=== PATIENT | female | born 1930 | race Two or more races ===

== ENCOUNTER 2019-01-18 14:28 | Emergency (ER) | payer MEDICARE, OTHER ==
[2019-01-18] MEDS: ACETAMINOPHEN 325 MG TAB PO (15:14)
[2019-01-18] MEDS: LIDOCAINE 1% (MDV) 20 ML INJ SC (15:38)
[2019-01-18] MEDS: DIPHTH/TET/ACEL PERTUSS (ADULT) 0.5 ML VIAL IM* (15:40)
[2019-01-18] MEDS: KETOROLAC 15 MG INJ IV (16:33)
[2019-01-18] MEDS: BACITRACIN 0.9 GM OINT TOP (19:10)
== END 2019-01-18 19:04 | disposition home or self-care (01) ==
LOC: E/R 14:28
DX: S81.011A Laceration without foreign body, right knee, initial encounter (principal); S81.812A Laceration without foreign body, left lower leg, initial encounter; I10 Essential (primary) hypertension; E03.9 Hypothyroidism, unspecified; J44.9 Chronic obstructive pulmonary disease, unspecified; I50.9 Heart failure, unspecified; S50.311A Abrasion of right elbow, initial encounter; W18.39XA Other fall on same level, initial encounter; Y92.9 Unspecified place or not applicable; Z23 Encounter for immunization; Z96.649 Presence of unspecified artificial hip joint
CPT/HCPCS: 12005; 73562; 90471; 90715; 96374; 99284-25

== ENCOUNTER 2019-01-28 13:28 | Emergency (ER) | payer MEDICARE, OTHER ==
[2019-01-28] MEDS: BACITRACIN 0.9 GM OINT TOP (16:31)
== END 2019-01-28 17:05 | disposition home or self-care (01) ==
LOC: FTE 13:28
DX: L08.9 Local infection of the skin and subcutaneous tissue, unspecified (principal); I11.0 Hypertensive heart disease with heart failure; I50.9 Heart failure, unspecified; J44.9 Chronic obstructive pulmonary disease, unspecified; E03.9 Hypothyroidism, unspecified; Z79.01 Long term (current) use of anticoagulants; Z96.649 Presence of unspecified artificial hip joint
CPT/HCPCS: 99283